=== PATIENT | female | born 1970 | race Caucasian/White ===

== ENCOUNTER → 2017-07-27 | Outpatient (CLI) | payer OTHER ==
--- NOTE | 2017-07-27 13:15 | KCIC ---
Ultrasound of the right upper quadrant of the abdomen 07/27/2017 CLINICAL HISTORY: Right upper quadrant abdominal pain. TECHNIQUE: A real-time ultrasound examination of the right upper quadrant of the abdomen was performed. Multiple images were obtained. FINDINGS: Comparison study is dated 05/22/2014. The gallbladder is well-distended. No gallstones are visualized. The gallbladder wall thickness is within normal limits. No pericholecystic fluid is seen. The common bile duct measures 2 mm in diameter which is within normal limits. The liver is normal in size measuring 15.9 cm in length. Increased echogenicity of the liver parenchyma is seen consistent with mild fatty infiltration. The visualized portions of pancreas and right kidney are within normal limits. Impression: Mild fatty infiltration of the liver. Otherwise negative study. Electronically signed by: Broderick Ramirez MD (07/27/2017 1:11 PM) [facility]-KCIC1
== END | disposition home or self-care (01) ==
LOC: KCIC US 12:07
PROVIDERS: ATTEND Family Medicine
DX: K76.0 Fatty (change of) liver, not elsewhere classified (principal)
CPT/HCPCS: 76705

== ENCOUNTER → 2017-09-03 | Outpatient (CLI) | payer OTHER ==
[~2017-09-03] VITALS: Ht 167.6 cm; Wt 54.4 kg
[~2017-09-03] MED LIST: SINCALIDE 1.09 MCG in IV NORMAL SALINE 50ML 30 ML IV ONE
--- NOTE | 2017-09-03 11:47 | RAD ---
Radionuclide hepatobiliary scan with gallbladder ejection fraction, 09/03/2017: History: Epigastric pain Following IV injection of 5.5 mCi of technetium 99m Choletec there is prompt uptake of the radionuclide from the blood stream by the liver. Activity is present in the common bile duct and small bowel at 15 minutes. Gallbladder activity develops at 35 minutes. Additional imaging of the gallbladder was performed following IV injection of 1.1 mcg of cholecystokinin. The gallbladder ejection fraction was 19%. 30-50% is considered to be the borderline low range. IMPRESSION: 1. No evidence of cystic duct or common bile duct obstruction. 2. Low gallbladder ejection fraction of 19%.
== END | disposition home or self-care (01) ==
LOC: NM 08:47
PROVIDERS: ATTEND Internal Medicine Gastroenterology
DX: R10.13 Epigastric pain (principal)
CPT/HCPCS: 78226; 96374; 96375; A9537; J2805

== ENCOUNTER 2017-10-03 11:40 | Day surgery (SDC) | payer OTHER ==
[~2017-10-03] VITALS: Ht 165.1 cm; Wt 55.8 kg
[~2017-10-03 11:40] MED LIST changes: +CETI10TA16 PO; +FLUT9.9S NS; +HYDROmorphone 2 MG/ML VIAL IV PRN; +IV RINGERS,LACTATED 1000ML 1,000 ML IV SCH; +LACT20SO PO; +LIDOCAINE 1% PF 2 ML VIAL. ID PRN; +MORPHINE SULFATE 2 MG/ML DISP.SYRIN. IV PRN; +NAPR500T4 PO; +OMEP20CA9 PO; +ONDANSETRON PF 4 MG/2 ML VIAL. IV PRN; +PROAIR HFA8.5 GM INH; +PROCHLORPERAZINE 10 MG/2 ML VIAL. IV PRN; +PROP60CA8 PO; -SINCALIDE 1.09 MCG in IV NORMAL SALINE 50ML 30 ML IV ONE; +SUMA100T4 PO; +VENL75CA PO; +fentaNYL PF VIAL 100 MCG/2 ML VIAL IV PRN
[2017-10-03] MEDS ORDERED: ONDANSETRON PF 4 MG/2 ML VIAL. ONE (12:07)
[2017-10-03] MEDS ORDERED: DEXAMETHASONE SOD PHOS 20 MG/5 ML VIAL. ONE (12:07)
[2017-10-03] MEDS ORDERED: fentaNYL PF VIAL 100 MCG/2 ML VIAL ONE (12:07)
[2017-10-03] MEDS ORDERED: LIDOCAINE 2% PF Vial for OR 5 ML VIAL. ONE ×2 (12:07→13:53)
[2017-10-03] MEDS ORDERED: ROCURONIUM 50 MG/5 ML VIAL. ONE (12:07)
[2017-10-03] MEDS ORDERED: PROPOFOL 20 ML IV ONE (12:07)
[2017-10-03] MEDS ORDERED: MIDAZOLAM HCL/PF 2 MG/2 ML VIAL. ONE (12:08)
[2017-10-03 12:12] LABS: NEG OBC UR NEG; POS OBC UR POS
[2017-10-03] MEDS ORDERED: SEVOFLURANE 61 TO 120 MINUTES. IH ONE ×4 (13:22→13:23)
[2017-10-03] MEDS ORDERED: SURGICEL HEMOSTAT 4X8 EACH. ONE (13:29)
[2017-10-03] MEDS ORDERED: BUPIVAC MPF-EPI 0.5%-1:200000 30 ML VIAL. ONE (13:29)
[2017-10-03] MEDS ORDERED: IOHEXOL 300 MG/ML 50 ML VIAL. ONE (13:29)
[2017-10-03] MEDS ORDERED: KETAMINE HCL 500 MG/10 ML VIAL. ONE (13:32)
[2017-10-03] MEDS ORDERED: NEOSTIGMINE 10 MG/10 ML VIAL. ONE (14:11)
[2017-10-03] MEDS ORDERED: GLYCOPYRROLATE 1 MG/5 ML VIAL. ONE (14:12)
--- NOTE | 2017-10-03 14:24 | PDOC4 ---
Operative Note Operative Note Operative Note: Preoperative Diagnosis: Biliary dyskinesia Postoperative Diagnosis: Same Procedure: Laparoscopic cholecystectomy with intraoperative cholangiogram Surgeons: Cameron Asst: Daysi ALDRIDGE Anesthesia: Gen. Estimated Blood Loss: 10 mL Specimen: Gallbladder to pathology Drains: None Complications: None Indications: The patient is a 46-year-old female who is been experiencing recurrent upper abdominal pain consistent with biliary colic. Her evaluation included a PIPIDA scan which showed a low gallbladder ejection fraction. Surgical treatment was offered by means of a laparoscopic cholecystectomy. The risks of surgery were discussed which include bleeding, infection, bile duct injury, bile leak, pain, the potential for additional surgeries or procedures. The patient understands and would like to proceed. Description: The patient was taken to the operating room and laid supine on the operating table. General anesthesia was performed. The abdomen was prepped with ChloraPrep and draped in a standard surgical fashion. A small infraumbilical incision was made with a scalpel. The Veress needle was then inserted and a pneumoperitoneum was then created. A 5 mm trocar was then inserted and the laparoscope was introduced. In the upper midabdomen a 5 mm trocar was inserted and in the right upper quadrant two 2.3 mm mini lap graspers were inserted. The gallbladder was retracted cephalad. The cystic duct was dissected free from surrounding tissues. One clip was placed on the duct near the gallbladder junction. An opening was made in the duct and a cholangiocatheter placed within and secured with a clip. Using contrast dye and fluoroscopy an intraoperative cholangiogram was performed that appeared unremarkable. The clip and catheter were then withdrawn. Three clips were placed on the cystic duct and it was divided. The cystic artery was then identified, dissected free, doubly clipped and divided as well. The gallbladder was then mobilized away from the liver with cautery. The umbilical 5 millimeter trocar was exchanged for an 11 millimeter trocar. The gallbladder was then placed in an endoscopic bag and extracted at the umbilical trocar site. The fascia there was closed with an 0 Vicryl suture. All blood and irrigation fluid was suctioned and hemostasis was good. The remaining ports were removed and the pneumoperitoneum was relieved. The skin incisions were injected with half percent Marcaine with epinephrine, and all were closed using 4-0 Monocryl suture. Steri-Strips and dressings were then applied. The patient tolerated the procedure well and was sent to the recovery room in stable condition. At the end of the case all counts were correct. DIEGO CONNOLLY MD Oct 03, 2017 14:24
[2017-10-03] MEDS ORDERED: OXYC-323 PO (14:55)
[2017-10-03] MEDS ORDERED: oxyCODONE/APAP 5/325 1 TAB TABLET PO ONE (15:15)
[2017-10-03] MEDS: fentaNYL PF VIAL 100 MCG/2 ML VIAL IV PRN ×2 (15:21→15:34)
--- NOTE | 2017-10-03 15:47 | RAD ---
Intraoperative cholangiogram, 10/03/2017: History: Cholecystectomy 4 spot films from surgery are presented for review. Contrast has been injected into the cystic duct remnant. 28 seconds of fluoroscopy time was utilized. There is good flow of contrast into the duodenum. The ampullary region is partially obscured by overlying duodenal contrast. No filling defect is seen in the common duct to suggest a retained stone. The incompletely opacified intrahepatic ducts are unremarkable. No contrast extravasation is seen. IMPRESSION: No significant abnormality is detected.
[2017-10-03 16:35] VITALS: BP 137/62
--- NOTE | 2017-10-04 13:45 | PATHOLOGY ---
PATHOLOGY REPORT * * * * * * * * FINAL DIAGNOSIS: Gallbladder, laparoscopic cholecystectomy: - Chronic cholecystitis. (JPM:raulito; 10/04/2017) COMMENT: There are no calculi identified within the gallbladder lumen or specimen container. There is no evidence of malignancy. REPORT ELECTRONICALLY SIGNED BY: Xavier Lincoln M.D. DATE/TIME: 10/04/2017 13:42 * * * * * * * * GROSS PATHOLOGY: Received in formalin labeled "Susan Mcarthur gallbladder," is a 7.4 x 3.1 x 2.3 cm, intact gallbladder with light blue to purple, highly vascular, and wrinkled serosal surfaces. Opening the gallbladder reveals dark bynum, velvety mucosa and an average wall thickness of 0.1 cm. Calculi are not present and no masses are noted grossly. Branch Specialist sections from the body and fundus are submitted along with the proximal margin in cassette A1. (TSD; 10/03/2017) INITIAL CPT CODE(S): A; 26226 Professional services performed [place] [address] Technical services performed by [facility] at [address] [place] [address] [address] [place] [address]. SPECIMEN(S) RECEIVED: A.Gallbladder CLINICAL HISTORY: Biliary dyskinesia PATIENT: SUSAN MCARTHUR /AGE: 212/08/1970 (Age: 46) PATIENT #: [id number] ALT CASE #: SPECIMEN COLLECTION DATE: 10/03/2017 SPECIMEN RECEIVED DATE: 10/03/2017 [facility] - [address] [place] [address] - PHONE: [phone] * * * END OF REPORT * * *
== END 2017-10-03 16:51 | disposition home or self-care (01) ==
LOC: SURG 11:40
PROVIDERS: ATTEND Surgery
DX: K82.8 Other specified diseases of gallbladder (principal); J44.9 Chronic obstructive pulmonary disease, unspecified; K21.9 Gastro-esophageal reflux disease without esophagitis; F17.210 Nicotine dependence, cigarettes, uncomplicated; Z98.890 Other specified postprocedural states
CPT/HCPCS: 47563; 74300; 81025; J0690; J1100; J2250; J2405; J2704; J2710; J3010; J3490; Q9967; 88304; C1769; J7030; J7120; J2001

== ENCOUNTER → 2018-07-01 | Outpatient (CLI) | payer OTHER ==
[~2018-07-01] MED LIST changes: -HYDROmorphone 2 MG/ML VIAL IV PRN; -IV RINGERS,LACTATED 1000ML 1,000 ML IV SCH; -LIDOCAINE 1% PF 2 ML VIAL. ID PRN; -MORPHINE SULFATE 2 MG/ML DISP.SYRIN. IV PRN; +NAPR-514 PO; -NAPR500T4 PO; -ONDANSETRON PF 4 MG/2 ML VIAL. IV PRN; +OXYC-323 PO; -PROCHLORPERAZINE 10 MG/2 ML VIAL. IV PRN; -fentaNYL PF VIAL 100 MCG/2 ML VIAL IV PRN
--- NOTE | 2018-07-01 14:59 | KCIC ---
Three-view left foot dated 07/01/2018. No comparison available. CLINICAL INDICATION: Pain after fall. FINDINGS: 3 views of left foot show normal bony alignment. No displaced fracture. No acute osseous or articular abnormality. Pes cavus deformity. IMPRESSION: No acute findings. Electronically signed by: Jignesh Hodge MD (07/01/2018 2:56 PM) [facility]-KCIC2
== END | disposition home or self-care (01) ==
LOC: KCIC 14:30
PROVIDERS: ATTEND Family Medicine
DX: M79.672 Pain in left foot (principal); J44.9 Chronic obstructive pulmonary disease, unspecified; K21.9 Gastro-esophageal reflux disease without esophagitis; F17.210 Nicotine dependence, cigarettes, uncomplicated
CPT/HCPCS: 73630

== ENCOUNTER → 2018-12-04 | Outpatient (CLI) | payer OTHER ==
[~2018-12-04] MED LIST changes: +ALBU2.5V8 INH; -OXYC-323 PO; +OXYC1TAB15 PO; -PROAIR HFA8.5 GM INH; +REGADENOSON 0.4 MG/5 ML DISP.SYRIN. IV ONE
--- NOTE | 2018-12-04 12:40 | RAD ---
MR#: [id number] Date of Study: 12/04/2018 Ordering Physician: YASSINE CHAN, Referring Physician: DEREK COYNE Tech: ERNESTO Pacheco, ARRT (R) (N) APPROVED REPORT Test Type: Pharmacological Stress Nurse/Tech: Jyoti Morrison R.N. Test Indications: c/p , pre-op Cardiac History: Smoker, family hx Medications: See Electronic Medical Record Medical History: See Electronic Medical Record Resting ECG: SR w/inverted T waves in leads AVL, AVR,V1, V2 Resting Heart Rate: 70 bpm Resting Blood Pressure: 92/52mmHg Pretest Chest Pain: No chest pain Nurse/Tech Notes SR, lungs CTA, has a wet smokers cough Consent: The procedure was explained to the patient in lay terms. Informed consent was witnessed. Danny eout was entered into [employer]. History and Stress Test performed by RT Martin (R) (N) Pharm. Details Pharmacologic stress testing was performed using 0.4mg per 5ml of regadenoson given intravenously ove r 7-10 seconds. Stress Symptoms SOB, flushed, hot, N/V POST EXERCISE Reason for Termination: Infusion complete Max HR: 120 bpm Max Blood Pressure: 165/73mmHg Heart Rate response to exercise: B/P went up due to N/V Chest Pain: No. Arrhythmia: No. ST Change: No. INTERPRETATION Stress EKG Conclusion: No evidence of stress induced EKG changes. Imaging Protocol IMAGE PROTOCOL: Rest Tc-99m/stress Tc-99m 1 day Rest: Stress: Viability: Radiopharm.Tc99m [id number] Sestamibi Dose10.2mCi 32.2mCi Img Date 12/04/2018 12/04/2018 Inj-Img [id number]. 60min. Rest Admin Site:IV - Right AntecubitalAdministrator:RT Martin (Caitlin)(N) Stress Admin Site: IV - Right AntecubitalAdministrator: RT Martin (R)(N) STRESS DATA End Diast. Vol.55.0mlAv. Heart Rate64.0bpm End Syst. Vol.10.0mlCO Index BSA0.0L/min Myocardial Qpdk746.0gEject. Bikcjhiv45.0% Stress Rates Pk. Fill Rate3.57EDV/secLVtime Pk. Fill 276.45msec Pk. Empty Rate4.63ESV/secLVtime Pk. Pygvu162.86msec 1/3 Pk. Fill1.22EDV/sec Stress Scores Regional WT0.00Summed WT0.00 Regional WM0.00Summed WM0.00 The rest and stress images show normal perfusion, normal contraction and thickening. LV Perf. Quant 17 Seg. SSS0.00 17 Seg. SRS1.00 17 Seg. SDS0.00 Stress Defect Extent (% LAD)0.00Rest Defect Extent (% LAD)0.60Rev. Defect Extent (% LAD)0.00 Stress Defect Extent (% LCX) 0.00Rest Defect Extent (% LCX)0.00Rev. Defect Extent (% LCX)0.00 Stress Defect Extent (% RCA)0.00Rest Defect Extent (% RCA)0.00Rev. Defect Extent (% RCA)0.00 Stress Defect Extent (% ALESIA)0.00Rest Defect Extent (% ALESIA)2.00Rev. Defect Extent (% ALESIA)0.00 Other Information Quality:Good Risk Assessment: Low Risk Conclusion 1. No evidence of EKG changes with stress testing. 2. Normal perfusion at stress/rest. 3. Low risk study. 4. EF > 60%. Signed by : Jim Cagle, Electronically Approved : 12/04/2018 12:38:35
== END | disposition home or self-care (01) ==
LOC: NM 08:12
PROVIDERS: ATTEND Internal Medicine Cardiovascular Disease
DX: R07.9 Chest pain, unspecified (principal)
CPT/HCPCS: 78452; 93017; 96374; A9500; J2785

== ENCOUNTER → 2020-08-03 | Outpatient (CLI) | payer OTHER ==
[~2020-08-03] MED LIST changes: +OMEP20CA16 PO; -OMEP20CA9 PO; +PROP60CA36 PO; -PROP60CA8 PO; -REGADENOSON 0.4 MG/5 ML DISP.SYRIN. IV ONE
--- NOTE | 2020-08-03 14:38 | KCIC ---
PA and lateral chest x-ray without comparison for COPD with acute exacerbation, smoking, left lower chest pain. FINDINGS: No definite pneumonic infiltrates are identified. No pneumothorax or pleural effusion. Heart size within normal limits. IMPRESSION: 1. No definite acute cardiopulmonary abnormality. Electronically signed by: Tha Mariano MD (08/03/2020 2:35 PM) [id number]
== END | disposition home or self-care (01) ==
LOC: KCIC 13:33
PROVIDERS: ATTEND Family Medicine
DX: J44.1 Chronic obstructive pulmonary disease with (acute) exacerbation (principal); F17.200 Nicotine dependence, unspecified, uncomplicated
CPT/HCPCS: 71046

== ENCOUNTER → 2021-03-07 | Outpatient (CLI) | payer OTHER ==
--- NOTE | 2021-03-08 08:52 | KCIC ---
EXAM: AP, oblique and lateral views right foot DATE: 03/07/2021 2:30 PM INDICATION: Reason: RT FOOT/METATARSAL PAIN X'S 2 WEEKS, NO KNOWN INJURY / Spl. Instructions: / Hist ory: . COMPARISON: No Prior FINDINGS: No evidence of acute fracture or dislocation. Joint spaces are preserved without significant degenera tive/proliferative change. Midfoot degenerative changes are seen. Decreased bone mineral density. IMPRESSION: 1. No evidence of acute fracture or dislocation 2. Decreased bone mineral density. Electronically signed by: Samir Clemens MD (03/08/2021 8:49 AM) [id number]
== END ==
LOC: KCIC 14:23
PROVIDERS: ATTEND Family Medicine
DX: M19.071 Primary osteoarthritis, right ankle and foot (principal)
CPT/HCPCS: 73630

== ENCOUNTER → 2021-03-15 | Outpatient (CLI) | payer OTHER ==
--- NOTE | 2021-03-15 13:09 | KCIC ---
INDICATION: Screening for osteopenia/osteoporosis. Postmenopausal evaluation. COMPARISON: None. TECHNIQUE: Bone densitometry was performed through the lumbar spine and proximal femur. IMPRESSION: Lumbar Spine: BMD: 1.4 T-Score: 3.6 Range: Normal Proximal Femur: BMD: 0.8 T-Score: -1.2 Range: Osteopenic World Health Organization Criteria for Bone Density: T-Score: > -1.0: Normal Range < -1.0 to -2.5: Osteopenic Range < -2.5: Osteoporotic Range Electronically signed by: Ran Leyva MD (03/15/2021 1:06 PM) [id number]
== END ==
LOC: KCIC DEXA 11:05
PROVIDERS: ATTEND Family Medicine
DX: R89.1 Abnormal level of hormones in specimens from other organs, systems and tissues (principal); R93.7 Abnormal findings on diagnostic imaging of other parts of musculoskeletal system; Z78.0 Asymptomatic menopausal state
CPT/HCPCS: 77080